=== PATIENT | female | born 1960 | race Caucasian/White ===

== ENCOUNTER → 2017-01-28 | Day surgery (SDC) | payer OTHER ==
[~2017-01-28] VITALS: Ht 162.6 cm; Wt 55.9 kg
[~2017-01-28] MED LIST: *morphine SULFATE 8 MG/ML PERIprocedure ONLY ONE; ALPR0.5T3 PO; ALPR0.5T99 PO; BUPIVACAINE HCL PF 0.5% 30 ML VIAL INFIL ONE; CHLORHEXIDINE GLUCONATE 2 % 1 PACK (2 CLOTHS) TOPICAL PRN; DEXAMETHASONE SOD PHOS 4 MG/ML VIAL ONE; DO NOT ADM ANY ANTICOAGULANT DRUGS PRN; FAMOTIDINE 20 MG/2 ML VIAL ONE; INSULIN HUMAN REGULAR 1,000 UNITS/10 ML VIAL SQ PRN; LACTATED RINGER'S 1000 ML IV PRN; METOPROLOL TARTRATE 25 MG TAB PO PRN; MIDAZOLAM HCL 2 MG/2 ML VIAL ONE; MORPHINE SULFATE 4 MG/ML INJ IV PRN; ONDANSETRON HCL 4 MG/2 ML VIAL IV PRN; ONDANSETRON HCL 4 MG/2 ML VIAL IV PUSH ONE; POVIDONE IODINE 5% (ANTISEPSIS KIT) 4 APPLICATIONS EACH NARE PRN; PROPOFOL 200 MG/20 ML AMP IV ONE; SODIUM CHLORID 0.9% 500 ML IV PRN; ceFAZolin 2 GM PREMIX 50 ML IV SCH; fentaNYL CITRATE 250 MCG/5 ML AMP ONE; metroNIDAZOLE 500 MG INJ 100 ML IV SCH; oxyCODONE/ACETAMINOPHEN 5 MG/325 MG TAB PO PRN
[2017-01-28 10:34] VITALS: BP 131/86; PULSE 89; RESP 18; TEMP 98; O2SAT 97
--- NOTE | 2017-01-28 12:52 | PD.OP ---
cc: Aubrey Christianson MD Operative Report Date of Surgery: Jan 28, 2017 Preoperative Diagnosis: (1) Left breast abscess Postoperative Diagnosis: (1) Left breast abscess Procedure: Incision and debridement of left breast abscess and wound Anesthesia: Gen. Surgeon: Aubrey Christianson Photolithographic Stripper(s): Staff Operation and Findings: EBL: 5 cc Specimen: Fluid sent for culture Findings: The patient had necrotic skin approximately 2 x 4 cm which was debrided as well as some underlying necrotic fatty tissue. Purulent fluid was drained. Procedure in detail: The patient was taken to the operating room and placed in supine position. Gen. anesthesia was induced. The left breast was prepped and draped in usual sterile fashion. Surgical timeout was performed to verify correct patient procedure and site. Marcaine was injected in the skin and subcutaneous tissue around the left breast wound. Necrotic skin 2 x 4 cm was sharply excised. Purulent fluid was drained and this was cultured. Some necrotic subcutaneous tissue was also debrided. The edges were healthy and bleeding and there was no further fluid collections. The final wound was about 2 x 4 cm. It was packed with iodoform gauze and a sterile dressing applied after irrigation. The patient was awakened and taken to PACU in stable condition. Aubrey Christianson MD Jan 28, 2017 12:52
[2017-01-28 14:15] VITALS: BP 142/80; PULSE 67; RESP 16; TEMP 98.3; O2SAT 98
== END | disposition home or self-care (01) ==
LOC: HSDC 09:40
PROVIDERS: ATTEND Surgery
DX: N61.1 Abscess of the breast and nipple (principal); B95.61 Methicillin susceptible Staphylococcus aureus infection as the cause of diseases classified elsewhere
CPT/HCPCS: 00400; 19020; 86403; 87070; 87186; 87205; J0690; J1100; J2250; J2270; J2405; J3010; J7120